=== PATIENT | female | born 1975 | race Caucasian/White ===

== ENCOUNTER 2017-10-05 08:57 | Emergency (ER) | payer OTHER ==
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
[2017-10-05] MEDS ORDERED: KETOROLAC 30 MG/ML INJ ONE (12:23)
[2017-10-05] MEDS ORDERED: HYDROCODONE/APAP 10/325 TAB ONE (12:23)
[2017-10-05] MEDS ORDERED: METHOCARBAMOL 500 MG TAB ONE (12:23)
[2017-10-05 13:16] VITALS: TEMP 97.9
[2017-10-05 13:20] VITALS: BP 122/77; O2SAT 94
== END 2017-10-05 13:11 | disposition home or self-care (01) ==
LOC: ER 08:57
DX: S16.1XXA Strain of muscle, fascia and tendon at neck level, initial encounter (principal); M79.1 Myalgia; V59.40XA Driver of pick-up truck or van injured in collision with unspecified motor vehicles in traffic accident, initial encounter; Z72.0 Tobacco use; Z88.1 Allergy status to other antibiotic agents; Z88.8 Allergy status to other drugs, medicaments and biological substances
CPT/HCPCS: 72125; 72141; 96372; 99285